=== PATIENT | female | born 1985 | race Caucasian/White ===

== ENCOUNTER 2016-06-20 11:40 | Emergency (ER) | payer MEDICAID ==
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
== END 2016-06-20 13:17 | disposition home or self-care (01) ==
LOC: ER 11:40
PROC: 08QNXZZ Repair Right Upper Eyelid, External Approach (ICD-10-PCS; principal; 2016-06-20)
DX: S01.111A Laceration without foreign body of right eyelid and periocular area, initial encounter (principal); Z98.890 Other specified postprocedural states; Z23 Encounter for immunization; Y04.2XXA Assault by strike against or bumped into by another person, initial encounter